=== PATIENT | male | born 1995 ===

== ENCOUNTER 2024-11-16 17:26 | Emergency (ER) | payer OTHER, SELFPAY ==
--- NOTE | ~2024-11-16 | XR_ITS ---
EXAMINATION: XR chest 2V Exam Date/Time: 11/16/2024 17:40 CDT HISTORY: sob, cp Comparison: None. RESULT: Lines, tubes, and devices: None. Lungs and pleura: Clear. Cardiomediastinal silhouette: Normal. Other: No acute osseous or upper abdominal finding. IMPRESSION: No acute cardiopulmonary process. Reviewed, dictated and finalized at location [facility].
--- NOTE | 2024-11-16 17:28 | ECG_ITS ---
Test Date: 2024-11-16 17:35:22 Measurements Intervals [place] Rate: 112 P: 43 NH: 152 QRS: 79 QRSD: 95 T: 48 QT: 309 QTc: 423 Interpretive Statements SINUS TACHYCARDIA OTHERWISE NORMAL ECG No previous ECG available for comparison Electronically Signed On 11-17-2024 09:59:52 CDT by Sky Mai M.D.
[2024-11-16 17:29] VITALS: BP 152/100; PULSE 113; RESP 18; TEMP 36.6; O2SAT 100
--- NOTE | 2024-11-16 17:34 | ED_ITS ---
HPI - SOB/Dyspnea General Chief Complaint: Arrhythmia/Palpitations Stated Complaint: heart feeling funny, SOB, blood sugar 240 Time Seen by Provider: 11/16/24 17:34 Focused HPI: Patient is a 29-year-old male who presents to the ER with palpitations and shortness of breath. He reports his symptoms started approximately 30 minutes prior to arrival. Patient reports he was ?feeling off yesterday. He denies any chest pain, recent fevers, or headaches. Patient received history of diabetes, high blood pressure, or urinary symptoms. He reports at the time of examination he can not get a full breath. After further examination patient reports he donated plasma 2 days ago and has not felt well since then. Patient also reports he has not taken his diabetic medications in months. GENERAL: Ill-appearing, obese, and in mild distress. HEAD: Normocephalic, atraumatic. CHEST: Clear to auscultation. ?No respiratory distress. HEART: Tachycardia, regular rhythm.? NEURO: ?Alert and oriented x3. Patient screened in triage and initial orders placed.? ?Additional care and disposition to be based upon?diagnostic testing and treatment. Course Vital Signs Vital signs: Vital Signs Temperature 36.6 C 11/16/24 17:29 Pulse Rate 113 H 11/16/24 17:29 Respiratory Rate 18 11/16/24 17:29 Blood Pressure 152/100 H 11/16/24 17:29 Pulse Oximetry 100 11/16/24 17:29 Oxygen Delivery Room Air 11/16/24 17:29 Temperature 36.6 C 11/16/24 17:29 Pulse Rate 113 H 11/16/24 17:29 Respiratory Rate 18 11/16/24 17:29 Blood Pressure 152/100 H 11/16/24 17:29 Pulse Oximetry 100 11/16/24 17:29 Oxygen Delivery Room Air 11/16/24 17:29 MDM - SOB/Dyspnea Lab Data 11/16/24 17:36 11/16/24 17:36 Labs: Lab Results 11/16/24 Range/Units 17:36 WBC 6.8 (4.5-10.0) K/mm3 RBC 5.14 (4.6-6.20) M/mm3 Hgb 15.2 (14.0-18.0) g/dL Hct 44.8 (42.0-52.0) % MCV 87.2 (80-100) fl MCH 29.6 (26-34) pg MCHC 33.9 (32-36) g/dl RDW 12.1 (11.5-14.5) % Plt Count 228 (150-375) k/mm3 MPV 8.6 (7.4-10.4) fl Immature Gran % (Auto) 0.6 H (0-0.5) % Neut % (Auto) 47.9 (45.5-73.1) % Lymph % (Auto) 37.6 (18.3-44.2) % [place] % (Auto) 10.1 H (2.6-8.5) % Eos % (Auto) 3.4 (0-4.4) % Baso % (Auto) 0.4 (0.2-1.2) % Lymph # (Auto) 2.56 (0.9-3.2) K/mm3 [place] # (Auto) 0.7 H (0.1-0.6) K/mm3 Eos # (Auto) 0.2 (0-0.3) K/mm3 Baso # (Auto) 0.0 (0.0-0.1) K/mm3 Abs Immat Gran (auto) 0.04 H (0.00-0.031) K/mm3 Absolute Neuts (auto) 3.3 (1.3-6.7) K/mm3 Absolute Nucleated RBC 0.000 (0.0-0.012) K/mm3 Nucleated RBC % 0.0 (0.0-0.2) % PT 13.2 (11.1-14.7) Seconds INR 1.0 APTT 23.0 (22.3-36.8) Seconds Sodium 137 (137-145) mmol/L Potassium 4.3 (3.4-5.0) mmol/L Chloride 99 (98-107) mmol/L Carbon Dioxide 28 (22-30) mmol/L Anion Gap 10 (4-12) mmol/L BUN 14 (9-20) mg/dL Creatinine 1.05 (0.7-1.3) mg/dL Estim Creat Clear Calc Not Reportable Estimated GFR > 60 (59 - ) Glucose 255 H (65-110) mg/dL POC Capillary Glucose 262 H (65-105) mg/dl Calcium 8.8 (8.4-10.2) mg/dL Total Bilirubin 1.3 (0.2-1.3) mg/dL AST 43 (17-59) U/L ALT 72 H (6-50) U/L Alkaline Phosphatase 122 (38-126) U/L Troponin I < 0.012 (0.000-0.034) ng/mL Total Protein 7.0 (6.3-8.2) g/dL Albumin 4.2 (3.5-5.1) g/dL Lipase 154 (23-300) U/L Discharge Plan Discharge Clinical Impression: Palpitations, Shortness of breath Patient Disposition: [facility] After Seen by Prov Patient Language: Serbian Follow-up/Referrals: PHYSICIAN NOT ON STAFF,NONSTAFF [Primary Care Provider] -
[2024-11-16 17:42] LABS: Hematocrit 44.8 % (42.0-52.0); Hemoglobin 15.2 g/dL (14.0-18.0); Immature Granulocyte Percent A 0.6 % (0-0.5); Lymphocytes Absolute Auto 2.56 K/mm3 (0.9-3.2); Mean Corpuscular HGB Conc 33.9 g/dl (32-36); Mean Corpuscular Hemoglobin 29.6 pg (26-34); Mean Corpuscular Volume 87.2 fl (80-100); Nucleated Red Blood Cells Absolute Auto 0.000 K/mm3 (0.0-0.012); Nucleated Red Blood Cells Perc 0.0 % (0.0-0.2); Platelet Count Result 228 k/mm3 (150-375); Red Blood Count 5.14 M/mm3 (4.6-6.20); White Blood Count 6.8 K/mm3 (4.5-10.0)
[2024-11-16 18:03] LABS: Alanine Aminotransferase 72 U/L (6-50); Albumin Level 4.2 g/dL (3.5-5.1); Alkaline Phosphatase 122 U/L (38-126); Anion Gap 10 mmol/L (4-12); Aspartate Amino Transferase 43 U/L (17-59); Bilirubin,Total 1.3 mg/dL (0.2-1.3); Blood Urea Nitrogen 14 mg/dL (9-20); Calcium 8.8 mg/dL (8.4-10.2); Carbon Dioxide 28 mmol/L (22-30); Chloride 99 mmol/L (98-107); Estimated Glomerular Filt Rate > 60; Glucose 255 mg/dL (65-110); Lipase 154 U/L (23-300); Potassium 4.3 mmol/L (3.4-5.0); Sodium 137 mmol/L (137-145); Total Protein 7.0 g/dL (6.3-8.2)
[2024-11-16 18:07] LABS: INR 1.0; Prothrombin Time 13.2 Seconds (11.1-14.7)
[2024-11-16 18:08] LABS: Partial Thromboplastin Time 23.0 Seconds (22.3-36.8)
[2024-11-16 18:14] LABS: Troponin I < 0.012 ng/mL (0.000-0.034)
--- NOTE | 2024-11-16 19:43 | PC.NURSE ---
Pt and approached triage desk asking about lab results. Both were informed that [employer] is not allowed to give out the information. then asked how many people were ahead of the patient and became angry with [employer] for not being able to give out that information. Pt then asked for IV to be removed. IV removed by LEXIS Kelsey with tip intact. Pt advised to be seen at the nearest ED if symptoms warrant a return. Pt ambulated to ED exit with steady gait and no signs for concern at this time.
--- OUTSIDE RECORDS SUMMARY | 2024-11-16 19:56 | XMS_ITS | Patient Health Record ---
Author Organization Address [address] [place] [address] Care Team Providers Care Food Beverage Manager Name Role Phone Looker, Linda Mandel Primary Care Provider [phone] Allergies Allergen (clinical drug ingredient) Drug/Non Drug Allergy documented on EMR Reaction Allergy Type Onset Date Status Benadryl Allergy Fastmelt Unknown Drug Allergy Active morphine Morphine Sulfate Unknown Drug Allergy Active paroxetine Paxil Unknown Drug Allergy Active Reason For Referral No Information Medications Medication SIG (Take, Route, Frequency, Duration) Notes Start Date End Date Status Ibuprofen 600 MG 1 tablet with food o r milk as needed Orally every 6 hrs 09/18/2017 Active cloNIDine HCl Active Penicillin V Potassium 500 MG 1 tablet Orally every 6 hours; Duration: 10 day(s) 09/18/2017 Activ e clonazePAM Active Social History Tobacco Use: Social History Observation Description Date Details (start date - stop date) Current Smoker NA - NA Tobacco Use/Smoking Question Answer Notes Are you a current smoker How many cigarettes a day do you smoke? 6-10 Problems Problem Type SNOMED Code ICD Code Onset Dates Problem Status W/U Status Risk Notes Problem Dental caries (K02.9) Active confirmed Plan Of Treatment No Information Insurance Providers Payer Name Payer Address Payer Phone Subscriber Number Group Number Insured Name Patient Relationship to Insured Coverage Start Date Coverage End Date [employer] [address] [address] [place] [phone] [id number] [employer] Self - patient is the insured Medical (General) History Medical History History ICD Code Sinus problems Asthma high blood pressure Surgical History Surgery Date(Month/Year) Eye Surgery 14 years old Hand Surgery-tooth removed 2014 Hospitalization History Reason Date(Month/Year) Hand celulitis in his hand - 5 days - [facility] 2014 infection in bloodstream - 2-3 days 2016
== END 2024-11-16 19:43 | disposition left against medical advice (07) ==
PROVIDERS: Student in an Organized Health Care Education/Training Program; Emergency Provider Registered Nurse
DX: R06.02 Shortness of breath (principal); R00.2 Palpitations
CPT/HCPCS: 36415; 71046; 80053; 82948; 83690; 84484; 85025; 85610; 85730; 93005; 99284